=== PATIENT | female | born 1950 | race Two or more races ===

== ENCOUNTER 2018-09-16 07:47 | Outpatient (CLI) | payer OTHER | END 2018-09-16 07:48 | disposition home or self-care (01) | LOC: SONOGRAMA 07:47 | DX: E04.2 Nontoxic multinodular goiter (principal) ==

== ENCOUNTER 2020-03-21 09:18 | Outpatient (CLI) | payer OTHER | END 2020-03-21 09:22 | disposition home or self-care (01) | LOC: SONOGRAMA 09:18 | PROVIDERS: ATTEND Pathology Anatomic Pathology & Clinical Pathology | DX: E04.2 Nontoxic multinodular goiter (principal) ==